=== PATIENT | female | born 1955 | race Caucasian/White ===

== ENCOUNTER 2019-06-01 07:01 | Day surgery (SDC) | payer OTHER ==
[2019-05-31 16:53] VITALS: BMI 18.9
[~2019-06-01] VITALS: Ht 162.6 cm; Wt 51.9 kg
[2019-06-01] VITALS (15 sets, daily range): BP systolic 101–132; BP diastolic 50–78; PULSE 65–98; RESP 11–39; Ht 162.6 cm; Wt 51.9 kg
[2019-06-01] MEDS ORDERED: ISOSULFAN BLUE 1% 5 ML INJ SC ONE (09:02)
--- NOTE | 2019-06-01 11:19 | PREAC ---
Date/Time of Note Date/Time of Note DATE: 06/01/19 TIME: 11:15 Anesthesia Eval and Record Evaluation Time Pre-Procedure Interview DATE: 06/01/19 TIME: 11:15 Age 63 Sex female NPO: 8 hrs Preoperative diagnosis left breast cancer Planned procedure left needle localized partial mastectomy and sentinal lymph node bx Past Medical History Past Medical History: Includes (occasional vertigo) Surgery & Anesthesia Issues Hx of PONV, No known issue Meds Anticoagulation: No Beta Yesika within 24 hr: No Reason Beta Yesika not given: Pt. not on B-Yesika No Active Prescriptions or Reported Meds Meds reviewed: Yes Allergies Coded Allergies: Anesthetics - Amide Type (Unverified Allergy, Unknown, 06/01/19) codeine (Verified Allergy, Unknown, NAUSEA /VOMITING, 06/01/19) Allergies Reviewed: Yes Labs/Studies Labs Reviewed: Reviewed by anesthesiologist test: N/A Pre-procedure Exam Airway: Adequate mouth opening, Adequate thyromental dist Mallampati: Mallampati IV Teeth: Normal Lung: Normal Heart: Normal ASA Physical Status ASA physical status: 2 Emergency: None Planned Anesthetic General/MAC: LMA Planned Pain Management Parenteral pain med, Local by surgeon Pre-operative Attestations Prior to commencing anesthesia and surgery, the patient was re-evaluated, there was verification of: *The patient's identity *The results of appropriate recent lab work and preoperative vital signs *The above evaluation not changing prior to induction *Anesthetic plan, risk benefits, alternative and complications discussed with patient/family; questions answered; patient/family understands, accepts and wishes to proceed. REBECA ESPARZA CRNA Jun 01, 2019 11:19
[2019-06-01] MEDS ORDERED: LIDOCAINE 2% (SDV) 5 ML INJ ONE (11:25)
[2019-06-01] MEDS ORDERED: PROPOFOL 1000 MG INJ ONE (11:25)
[2019-06-01] MEDS ORDERED: SCOPOLAMINE 1.5 MG PATCH ONE (11:25)
[2019-06-01] MEDS ORDERED: FENTAnyl 50 MCG/ML VIAL ONE (11:27)
[2019-06-01] MEDS ORDERED: EPHEDrine 25 MG/5 ML SYG ONE (11:58)
[2019-06-01] MEDS ORDERED: GLYCOPYRROLATE 0.4 MG INJ ONE (11:58)
[2019-06-01] MEDS ORDERED: CEFAZOLIN 1 GM/50 ML (PMX) 50 ML IVPB SCH (12:00)
[2019-06-01] MEDS ORDERED: SOD CHLORIDE 0.9% 1,000 ML IV SCH (12:00)
[2019-06-01] MEDS ORDERED: DEXAMETHASONE 4 MG/ML 5 ML INJ ONE (12:13)
[2019-06-01] MEDS ORDERED: ONDANSETRON 4 MG INJ ONE (12:13)
[2019-06-01] MEDS ORDERED: FAMOTIDINE 20 MG INJ ONE (12:14)
--- NOTE | 2019-06-01 12:39 | SIPON ---
Date/Time of Note Date/Time of Note DATE: 06/01/19 TIME: 12:37 Operative Report Preoperative Diagnosis Invasive cancer left breast Postoperative Diagnosis Same Operation/Procedure Performed Left needle directed partial mastectomy and axillary dissection utilizing sentinel lymph node technique Surgeon see signature line oncology physician assistant Dr Sagastume Anesthesia: general Estimated blood loss: 0 - 10 ml's Transfusion Required none Specimen Left partial mastectomy specimen and sentinel lymph node with additional lymph node Grafts/Implants none Complications none ANGIE FRANZ MD Jun 01, 2019 12:39
[2019-06-01] MEDS ORDERED: HYDROmorphONE 1 MG/5 ML IV SYRINGE IV PRN ×2 (13:00)
[2019-06-01] MEDS ORDERED: MEPERIDINE 25 MG INJ IV PRN (13:00)
[2019-06-01] MEDS ORDERED: ONDANSETRON 4 MG INJ IV PRN (13:00)
[2019-06-01] MEDS ORDERED: FENTAnyl 50 MCG/ML VIAL IV PRN ×2 (13:00)
--- NOTE | 2019-06-01 13:23 | PAC ---
Date/Time of Note Date/Time of Note DATE: 06/01/19 TIME: 13:19 Post-Anesthesia Notes Post-Anesthesia Note Activity: WNL Respiratory function: WNL Cardiovascular function: WNL Mental status: Baseline Pain reasonably controlled: Yes Hydration appropriate: Yes Nausea/Vomiting absent: Yes Comments BP 101/50 Sp02 100% HR 96 RR 12 T 97.8F REBECA ESPARZA CRNA Jun 01, 2019 13:23
--- NOTE | 2019-06-01 14:48 | OPR ---
DATE OF OPERATION: 06/01/2019 PREOPERATIVE DIAGNOSIS: Invasive cancer, left breast. POSTOPERATIVE DIAGNOSIS: Invasive cancer, left breast. PROCEDURE: Left needle-directed partial mastectomy and axillary dissection utilizing sentinel lymph node technique. ANESTHESIA: General. ANESTHESIOLOGIST: Nurse pumping plant operatorNiki . SURGEON: Christian Mayes MD. RADIOLOGY SERVICES MANAGER: Yordan Sagastume MD. INDICATIONS FOR PROCEDURE: The patient is a 63-year-old female, who underwent screening mammography and was found to have a suspicious lesion in the upper outer quadrant of her left breast. Subsequent core biopsy revealed invasive cancer. She was counseled as to the risks versus benefits of definiti ve surgical treatment. She consented and was scheduled for surgery. DESCRIPTION OF PROCEDURE: On the morning of surgery, the patient presented to [facility] where she underwent localization of the lesion performed by attending radiologist, Dr. Irwin He. Subsequently, she was brought to the operating theater, placed under general a nesthesia. The left breast and axillary region was prepped and draped in usual sterile fashion. Jennifer roximately 3 mL of 1% Lymphazurin blue dye were injected peritumorally. The breast was gently massag ed for approximately 12 minutes. At this point, approximately 3 cm incision was made in the left axi llary hairline. Subcutaneous tissue was dissected with cautery down through the clavipectoral fascia . A dye-stained lymphatic was traced to an obvious sentinel node. There was additional node also in this area. These 2 lymph nodes were meticulously resected using the LigaSure device. Intraoperativ e analysis of the lymph nodes performed by attending pathologist, Dr. Sly Morin, was negative fo r evidence of metastatic disease. Therefore, the nodes were sent for permanent pathologic analysis a nd no further lymph nodes were taken. The wound was irrigated. Minimal bleeding was controlled with cautery. The skin was then reapproximated with 4-0 Vicryl sutures in subcuticular fashion. Attenti on was then directed to performing the partial mastectomy. A curvilinear incision was made in the re gion of the previously placed localization wire. Subcutaneous tissue was dissected with cautery. Sk in edges were then elevated with skin hooks and wide circumferential dissection of the tissue associa javier with the wire, then took place, taking great care to ensure adequate margin. Specimen was then e levated, transected, oriented, and sent for radiographic confirmation of capture. Capture was confir med. Specimen was then sent for permanent pathologic analysis. The wound was irrigated with sterile water and minimal residual bleeding was controlled with cautery, and the skin was then reapproximate d with a deep dermal layer of 4-0 Vicryl sutures in interrupted fashion, followed by final skin appro ximation with 5-0 PDS sutures in subcuticular fashion. Dermabond was then applied to both incisions. The patient tolerated the procedure well. The total blood loss was approximately 20 mL. There wer e no complications and the patient was transported in stable condition to the recovery room where cir cumferential compression dressing was applied. Dictated By: CHRISTIAN ARELLANO/VAUGHN Conf#: [id number] DID#: [id number]
== END 2019-06-01 15:20 | disposition home or self-care (01) ==
LOC: SDS 07:01 → EDBD 16:00
PROVIDERS: ATTEND Surgery Surgical Oncology
DX: C50.912 Malignant neoplasm of unspecified site of left female breast (principal)
CPT/HCPCS: 19301; 38525; 88307; 88331; J1100; J2405; J3010; J7030; Z7512; Z7610; Q9968